=== PATIENT | male | born 1945 | race Caucasian/White ===

== ENCOUNTER 2021-08-22 06:40 | Day surgery (SDC) | payer MEDICARE, BC ==
[~2021-08-22] VITALS: Ht 170.2 cm; Wt 77.0 kg
[~2021-08-22 06:40] MED LIST: ANDROGEL1.25 GM TD; ARICEPT5 MG PO; ASPIRIN81 MG PO; LIPITOR10 MG PO; NEXIUM40 MG PO; SYNTHROID75 MCG PO; TYLENOL EXTRA500 MG PO
--- NOTE | 2021-08-23 07:59 | OR ---
[facility] [address] [place], [place] [address] Signed DATE OF OPERATION: 08/22/2021 SURGEON: Shukri Angel MD PREOPERATIVE DIAGNOSES: 1. Gastroesophageal reflux disease. 2. Questionable history of short-segment Day's. 3. Questionable mild gastroparesis. 4. History of mild gastritis. 5. Possible tiny hiatal hernia. 6. Diminutive polyp removed in 2009, hepatic flexure. 7. Father with colon polyps. 8. Hemorrhoids. POSTOPERATIVE DIAGNOSES: 1. Mild diffuse gastritis. 2. Minimal/tiny hiatal hernia. 3. GE junction at 33 cm without Day's esophagus. 4. 4 mm and 7 mm sessile polyps in the distal right colon. 5. 3 mm polyp at 8 cm. 6. 4 mm polyp at 70 cm. 7. Minimal internal hemorrhoids. 8. Moderate external hemorrhoids. 9. Minimal to moderate sigmoid diverticulosis. 10. Long redundant mildly narrow sigmoid colon. PROCEDURES: 1. EGD with CLOtest and biopsies of the antrum and GE junction. 2. Colonoscopy with hot biopsy. ESTIMATED BLOOD LOSS: None. INDICATIONS: Alfred is a 75-year-old gentleman, asked to see me for repeat upper and lower endoscopy. He had his initial upper and lower endoscopy in [address] Merchant. At that time, there was concern for short-segment Day's esophagus and mild gastroparesis. A very diminutive polyp had been snared at the hepatic flexure and lost in the stool. He also thinks on this occasion that his father may have had colonic polyps. He really has no lower GI complaints. He uses Nexium on an as-needed basis for acid reflux symptoms. I Electronically Signed By: SHUKRI ANGEL MD 08/23/21 0759 PATIENT NAME: ALFRED ARRIAZA OPERATIVE REPORT DATE OF : 47 REPORT #: [id number] PHYSICIAN: SHUKRI ANGEL MD PCP: NO PRIMARY CARE PHYSICIAN REPORT IS CONFIDENTIAL AND NOT TO BE RELEASED WITHOUT AUTHORIZATION [facility] [address] [place], [place] [address] Signed helped him with upper endoscopy in 2012 and in 2018. He has some mild inflammation in the stomach and in possibly the distal esophagus. Really, no Day's mucosa. There was no significant hiatal hernia. If there is a hiatal hernia, it is quite small. He did well with Versed and fentanyl. Repeat biopsies have been negative for Day's esophagus. He wanted to wait on his colonoscopy until 2019. We were involved with the COVID pandemic last year. He therefore returns now for both upper and lower endoscopy. He said he has had no major changes in his health. In the office, I gave him pamphlets on both upper and lower endoscopy. He understands the nature of the two tests. There is risk including, but not limited to gas bloating, crampy abdominal pain, bleeding, perforation requiring surgery, and missed diagnosis. He also understands the need for IV conscious sedation. He had expressed understanding and wished to proceed. PROCEDURE NOTE: Alfred was taken into our endoscopy suite and placed in the supine semi-recumbent position. The posterior oropharynx was anesthetized with lidocaine spray. A bite block was utilized for the case. He was given a total of 8 mg of Versed and 175 mcg of fentanyl to cover both upper and lower endoscopy. The adult gastroscope had been introduced and advanced under direct visualization out into the third portion of the duodenum without difficulty. The duodenum and pyloric channel were unremarkable on this occasion. Once again he has very mild inflammatory changes diffusely throughout the stomach. We took a biopsy from the antrum for CLOtest as well as pathologic review. There were no ulcerations. Upon retroflexion of scope, he may have just a very tiny hiatal hernia. The scope was withdrawn up through the area of the GE junction, which was compliant without stricture. No gastric or esophageal varices. Very minimal disruption to his Z-line. No Day's mucosa. We went ahead and took a single biopsy along the edge of the Z-line for pathologic review. His distal middle and upper esophagus were unremarkable. After this, the gastroscope was withdrawn and the gas suctioned out. Alfred tolerated his upper endoscopy quite well. Alfred was then rotated into the left lateral decubitus position. He was maintained on IV sedation with Versed and fentanyl. A digital rectal exam was performed and he has moderate external hemorrhoids on both sides. Good sphincter tone. The prostate gland is moderately enlarged and indurated. The right superior portion of the prostate gland is a bit swollen. He might review that with his primary care provider. After this, the adult colonoscope was introduced and advanced under direct visualization of camera. Alfred is slight of build and we found that his sigmoid colon was somewhat narrow with moderate diverticula. It took some extra sedation abdominal compression in order to advance the scope through his sigmoid colon. The left colon opened up nicely and the scope traveled quite nicely around to the right colon. It took a little extra sedation and abdominal compression and we passed the scope down into the cecum itself. He woke up a couple of times during the process, but responded nicely to the Versed and fentanyl. His prep was overall satisfactory. He still had some particulate stool Electronically Signed By: SHUKRI ANGEL MD 08/23/21 0759 PATIENT NAME: ALFRED ARRIAZA OPERATIVE REPORT DATE OF : 47 REPORT #: [id number] PHYSICIAN: SHUKRI ANGEL MD PCP: NO PRIMARY CARE PHYSICIAN REPORT IS CONFIDENTIAL AND NOT TO BE RELEASED WITHOUT AUTHORIZATION [facility] [address] [place] [id number] Signed matter in several areas, we could not suction out completely. We could see the appendiceal orifice and the ileocecal valve. The scope was then slowly withdrawn. The above-mentioned polyps were removed with the help of hot biopsy forceps. Again, his sigmoid colon somewhat long and narrow and little redundant. Once in the rectum, the scope had been retroflexed and he does have minimal internal hemorrhoids as well. After this, the gas was suctioned out and colonoscope removed. Alfred tolerated the procedure quite well. RECOMMENDATIONS: I will see Alfred back in my office in 7 to 14 days to review his results. He might consider a shorter followup interval given his bowel prep and his father's history on this occasion plus his own polyps. In addition, he might review the prostate exam with his primary care provider. Shukri Angel MD ALB/MODL /[id number] cc: Shukri Angel MD Copies: SHUKRI ANGEL MD ~ Electronically Signed By: SHUKRI ANGEL MD 08/23/21 0759 PATIENT NAME: ALFRED ARRIAZA OPERATIVE REPORT DATE OF : 47 REPORT #: [id number] PHYSICIAN: SHUKRI ANGEL MD PCP: NO PRIMARY CARE PHYSICIAN REPORT IS CONFIDENTIAL AND NOT TO BE RELEASED WITHOUT AUTHORIZATION
--- NOTE | 2021-08-23 14:41 | PATH ---
[facility] [address] [place], [place] [address] Signed SPECIMEN(S): A ANTRUM/PYLORUS BIOPSY SPECIMEN(S): B GE JUNCTION BIOPSY SPECIMEN(S): C POLYP AT 8 CM SPECIMEN(S): D DISTAL ASCENDING/RIGHT COLON POLYP X2 SPECIMEN(S): E POLYP AT 70 CM SPECIMEN SOURCE: A. ANTRUM/PYLORUS BIOPSY B. GE JUNCTION BIOPSY C. POLYP AT 8 CM D. DISTAL ASCENDING/RIGHT COLON POLYP X2 E. POLYP AT 70 CM CLINICAL HISTORY: Esophagogastroduodenoscopy/colonoscopy. Mild gastroparesis; short segment Day's esophagus; personal history of colon polyps; mild gastritis; hemorrhoids; GERD. Postop Dx: Mild diffuse gastritis; hiatal hernia; rectal and colon polyps; diverticulosis. MICROSCOPIC DESCRIPTION: Histologic sections of all submitted blocks are examined by light microscopy. These findings, together with the gross examination, support the pathologic diagnosis. FINAL PATHOLOGIC DIAGNOSIS: A. Antrum, biopsies: - Mild chronic inactive gastritis. - Negative for intestinal metaplasia. - Negative for Helicobacter pylori organisms on routine stain. B. GE junction, biopsies: - Fragments of reactive squamocolumnar mucosa with some reflux changes. - Negative for intestinal metaplasia and dysplasia. C. Colon polyp at 8 cm, polypectomy: - Hyperplastic polyp. D. Distal ascending/right colon polyps, polypectomy: - Fragments of tubular adenoma. - Negative for high-grade dysplasia and malignancy. E. Polyp at 70 cm, polypectomy: - Hyperplastic polyp. DDF:minh:C2NR GROSS DESCRIPTION: PATIENT NAME: DEMETRIUS ARRIAZA PATHOLOGY DATE OF : 47 REPORT #: [id number] PHYSICIAN: WALTER FAULKNER PCP: NO PRIMARY CARE PHYSICIAN REPORT IS CONFIDENTIAL AND NOT TO BE RELEASED WITHOUT AUTHORIZATION [facility] [address] [place], [place] [address] Signed Five specimens are received in five containers labeled with "EA." A. The specimen, labeled "EA, biopsy, antrum," is received in formalin and consists of two fragments of pink-bermeo tissue (0.2 and 0.3 cm in greatest dimension). The specimen is submitted entirely in cassette (A1). B. The specimen, labeled "EA, biopsy, EG junction," is received in formalin and consists of one fragment of pink-bermeo tissue (0.3 cm in greatest dimension). The specimen is submitted entirely in cassette (B1). C. The specimen, labeled "EA, 3," and designated on the requisition "colon polypectomy at 8 cm," is received in formalin and consists of one fragment of pink-bermeo tissue (0.3 cm in greatest dimension). The specimen is submitted entirely in cassette (C1). D. The specimen, labeled "EA, 4," and designated on the requisition "distal ascending/right polypectomy x 2," is received in formalin and consists of multiple fragments of pink-bermeo tissue (0.1-0.3 cm in greatest dimension). The specimen is submitted entirely in cassette (D1). E. The specimen, labeled "EA, 5," and designated on the requisition "polyp at 70 cm," is received in formalin and consists of one fragment of pink-bermeo tissue (0.3 cm in greatest dimension). The specimen is submitted entirely in cassette (E1). AC (under the direct supervision of a pathologist) The Gross Description was prepared using a voice recognition system. The report was reviewed for accuracy; however, sound-alike word errors, addition and/or deletions may occur. If there is any question about this report, please contact Client Services. PERFORMING LABORATORY: The technical component was performed by [facility] [address] ([employer]: Rossy Valencia MD; CLIA# [id number]). Professional interpretation was performed by [facility], [address] [place], [place] [address] (CLIA# [id number]). Diagnostician: Jacob Bermudez DO Pathologist Electronically Signed 08/23/2021 Copies: PATIENT NAME: DEMETRIUS ARRIAZA PATHOLOGY DATE OF : 47 REPORT #: [id number] PHYSICIAN: WALTER FAULKNER PCP: NO PRIMARY CARE PHYSICIAN REPORT IS CONFIDENTIAL AND NOT TO BE RELEASED WITHOUT AUTHORIZATION [facility] [address] [place], [place] [address] Signed ~ PATIENT NAME: DEMETRIUS ARRIAZA PATHOLOGY DATE OF : 47 REPORT #: [id number] PHYSICIAN: WALTER PATHOLOGY PCP: NO PRIMARY CARE PHYSICIAN REPORT IS CONFIDENTIAL AND NOT TO BE RELEASED WITHOUT AUTHORIZATION
== END 2021-08-22 10:14 | disposition home or self-care (01) ==
LOC: OPS 06:40 → DS 06:40 → OPS 08:00
PROVIDERS: ATTEND Colon & Rectal Surgery
PROC: 0DBK8ZX Excision of Ascending Colon, Via Natural or Artificial Opening Endoscopic, Diagnostic (ICD-10-PCS; 2021-08-22)
PROC: 0DBE8ZX Excision of Large Intestine, Via Natural or Artificial Opening Endoscopic, Diagnostic (ICD-10-PCS; 2021-08-22)
PROC: 0DB48ZX Excision of Esophagogastric Junction, Via Natural or Artificial Opening Endoscopic, Diagnostic (ICD-10-PCS; principal; 2021-08-22 08:00)
PROC: 0DB78ZX Excision of Stomach, Pylorus, Via Natural or Artificial Opening Endoscopic, Diagnostic (ICD-10-PCS; 2021-08-22 08:00)
DX: K29.30 Chronic superficial gastritis without bleeding (principal); K44.9 Diaphragmatic hernia without obstruction or gangrene; D12.2 Benign neoplasm of ascending colon; K64.8 Other hemorrhoids; K64.4 Residual hemorrhoidal skin tags; K57.30 Diverticulosis of large intestine without perforation or abscess without bleeding; Q43.8 Other specified congenital malformations of intestine; J45.909 Unspecified asthma, uncomplicated; M19.90 Unspecified osteoarthritis, unspecified site; E78.5 Hyperlipidemia, unspecified; K21.9 Gastro-esophageal reflux disease without esophagitis; E03.9 Hypothyroidism, unspecified; Z83.71 Family history of colonic polyps; Z86.010 Personal history of colon polyps
CPT/HCPCS: 83009; 99153; G0500; J2250; J3010; J7121